=== PATIENT | female | born 1960 | race Caucasian/White ===

== ENCOUNTER 2023-12-07 05:43 | Emergency (ER) | payer OTHER ==
--- OUTSIDE RECORDS SUMMARY | 2023-12-07 05:47 | XMS REPORT | Continuity of Care Document ---
Author Name Unknown Address [address] [facility] [address] [place] [address] [facility] thconnect Address [address] [facility] [address] [facility] [address] [place] [address] Care Team Providers Care Wardrobe Specialty Worker Name Role Phone Yas Atkins MD Primary Care Physici an Diana Turcios MD Attending Clinician [phone] DIANA TURCIOS Attending Clinician Unavailable Sari Sharp MD Attending Clinician [phone] SARI SHARP Attending Clinician Unavailable Doctor Unassigned, [place] Attending Clinician U navailable YAS ATKINS Attending Clinician Lesley vailable Lab, Ang - Db Attending Clinician Unavailable Yas Atkins MD Attending Clinician Kacey Marx Attending Clinician [phone] KACEY RANKIN Attending Clinician Unavaila ble MICHAEL Attending Clinician Unavailable SARI SHARP Admitting Clinician Unavailable Sari Sharp MD Admitting Clinician [phone] MICHAEL Admitting Clinician Unavailable Payers Payer Name Policy Type Policy Number Effective Date Expirati on Date Source [place] [id number] 2019 00:00:00 Problems Condition Name Condition Details Condition Category Status Onset Date Resolution Date Last Treatment Date Treating Clinician Comments Source Encounter for screening colonoscop y Encounter for screening colonoscop y Disease Active 2022-05 00:00: 00 [facility] Non-neopla stic nevus Non-neopla stic Nevus Problem Active 11-19 00:00: 00 [facility] Hyperlipid emia Hyperlipid emia Problem Active 11-18 00:00: 00 [facility] Solar lentigo Solar Lentigo Problem Active 11-18 00:00: 00 [facility] Osteoporos is Osteoporos is Problem Active 11-18 00:00: 00 [facility] Genital herpes simplex type 2 Genital Herpes Simplex Type 2 Problem Active 11-05 00:00: 00 [facility] Herpes labialis Herpes Labialis Problem Active 11-05 00:00: 00 [facility] Middle insomnia Middle Insomnia Problem Active 11-05 00:00: 00 [facility] Heberden node of the distal interphala ngeal joints of the left hand [place] Node of the Distal Interphala ngeal Joints of the Left Hand Problem Active 11-05 00:00: 00 [facility] Phlebitis Phlebitis Problem Active [facility] Osteopenia Osteopenia Problem Active [facility] Scoliosis deformity of spine Scoliosis Deformity of Spine Problem Active [facility] Allergies, Adverse Reactions, Alerts Allergy Name Allergy Type Status Severity Reaction(s) Onset Date Inactive Date Treating Clinician Comments Source NO KNOWN ALLERGIE S Drug Class Active [facility] Social History Social Habit Start Date Stop Date Quantity Comments [facility] intake 2023-12-03 00:00:00 2023-12-03 00:00:00 Current drinker of alcohol (finding) [facility] History of Social function 2023-06-09 00:00:00 2023-06-09 00:00:00 [facility] Alcohol intake 2023-06-03 00:00:00 2023-06-03 00:00:00 Current drinker of alcohol (finding) [facility] Tobacco use and exposure 2023-04-08 00:00:00 2023-04-08 00:00:00 Smokeless tobacco non-user [facility] Alcohol Comment 2023-04-08 00:00:00 2023-04-08 00:00:00 drinks a jaz twice weekly [facility] Sex assigned at 1960 00:00:00 1960 00:00:00 [facility] Smoking Status Start Date Stop Date Source Never smoked tobacco [facility] Medications Ordered Medication Name Filled Medication Name Start Date Stop Date Current Medication? Ordering Clinician Indication Dosage Frequency Signature (SIG) Comments Components Source calcium carb/vitami n D2/vit K1 (CALCIUM- TAMIN D-VITAMIN K ORAL) 12-02 08:28: 38 Yes Take by mouth. [facility] levoFLOXaci n 750 mg tablet 12-02 00:00: 00 Yes [id number] 750mg Take 1 tablet by mouth every 24 (twenty-fo ur) hours. [facility] albuterol 90 mcg/actuati on inhaler 12-02 00:00: 00 Yes [id number] 2{puff} Inhale 2 Puffs every 6 (six) hours as needed for Wheezing or Shortness of Breath. [facility] codeine-gua ifenesin 10-100 mg/5 mL oral solution 12-02 00:00: 00 12-10 04:59 :00 Yes 5mL Take 5 mL by mouth every 6 (six) hours as needed for Cough for up to 7 days. Indication s: Cough [facility] azithromyci n 250 mg tablet 11-30 00:00: 00 12-02 00:00 :00 No 250mg Take 1 tablet by mouth in the morning. [facility] amoxicillin -clavulanat e 875-125 mg per tablet 11-26 00:00: 00 12-02 00:00 :00 No 1{tbl} Take 1 tablet by mouth in the morning and 1 tablet in the evening. [facility] water for irrigation irrigation solution 06-09 16:41: 00 06-09 17:07 :12 No PRN, Starting on Wed06/09/23 at 1041, Until Wed06/09/23 at 1107, Routine, Intra-op [facility] simethicone (GAS RELIEF (SIMETHICON E)) 40 mg/0.6 mL drops 06-09 16:41: 00 06-09 17:07 :12 No PRN, Starting on Wed06/09/23 at 1041, Until Wed06/09/23 at 1107, Routine, Intra-op [facility] lactated ringers IV infusion 1,000 mL 06-09 15:15: 00 06-09 15:27 :00 No 1000mL at 42 mL/hr, 1,000 mL, IV Infusion, ONCE, 1 dose, On Wed06/09/23 at 0915, Routine, DSU Pre-op [facility] calcium carb/vitami n D2/vit K1 (CALCIUM- TAMIN D-VITAMIN K ORAL) 06-09 11:41: 57 Yes Take by mouth. [facility] calcium carb/vitami n D2/vit K1 (CALCIUM- TAMIN D-VITAMIN K ORAL) 2022-05 10:12: 57 Yes Take by mouth. [facility] peg-electro lyte soln 236-22.74-6 .74 -5.86 gram solution 2022-05 00:00: 00 05-07 05:59 :00 No 4000mL Take 4,000 mL by mouth once now for 1 dose. [facility] amoxicillin 500 mg capsule 2022-05 00:00: 00 12-02 00:00 :00 No TAKE 1 CAPSULE BY MOUTH EVERY 8 HOURS UNTIL GONE [facility] calcium carb/vitami n D2/vit K1 (CALCIUM- TAMIN D-VITAMIN K ORAL) 2022-05 10:14: 27 Yes Take by mouth. [facility] alendronate 70 mg tablet Take 1 tablet every week by oral route for 84 days. alendronate 70 mg tablet Take 1 tablet every week by oral route for 84 days. No 1 Q1W alendronat e 70 mg tablet Take 1 tablet every week by oral route for 84 days. [facility] doxepin 3 mg tablet TAKE 1 TABLET BY MOUTH EVERY DAY AT BEDTIME doxepin 3 mg tablet TAKE 1 TABLET BY MOUTH EVERY DAY AT BEDTIME No doxepin 3 mg tablet TAKE 1 TABLET BY MOUTH EVERY DAY AT BEDTIME [facility] valacyclovi r 500 mg tablet TAKE 1 TABLET BY MOUTH EVERY 12 HOURS FOR 3 DAYS NEEDED FOR FLARES valacyclovi r 500 mg tablet TAKE 1 TABLET BY MOUTH EVERY 12 HOURS FOR 3 DAYS NEEDED FOR FLARES No valacyclov ir 500 mg tablet TAKE 1 TABLET BY MOUTH EVERY 12 HOURS FOR 3 DAYS NEEDED FOR FLARES [facility] Vital Signs Vital Name Observation Time Observation Value Comments S diana Systolic blood pressure 2023-12-03 13:30:00 129 mm[Hg] [facility] Diastolic blood pressure 2023-12-03 13:30:00 80 mm[Hg] [facility] Heart rate 2023-12-03 13:29:00 81 /min [facility] Body temperature 2023-12-03 13:29:00 37 Omaira [facility] Respiratory rate 2023-12-03 13:29:00 18 /min [facility] Body height 2023-12-03 13:29:00 162.6 cm [facility] Body weight 2023-12-03 13:29:00 57.607 kg [facility] BMI 2023-12-03 13:29:00 21.80 kg/m2 [facility] Oxygen saturation in Arterial blood by Pulse oximetry 2023-12-03 13:29:00 97 /min [facility] Systolic blood pressure 2023-06-09 17:35:00 118 mm[Hg] [facility] Diastolic blood pressure 2023-06-09 17:35:00 66 mm[Hg] [facility] Heart rate 2023-06-09 17:35:00 52 /min [facility] Respiratory rate 2023-06-09 17:35:00 13 /min [facility] Oxygen saturation in Arterial blood by Pulse oximetry 2023-06-09 17:35:00 100 /min [facility] Body temperature 2023-06-09 17:06:00 36.44 Omaira [facility] Body height 2023-06-03 18:15:00 162.6 cm [facility] Body weight 2023-06-03 18:15:00 58.968 kg [facility] BMI 2023-06-03 18:15:00 22.31 kg/m2 [facility] Systolic blood pressure 2023-06-09 17:35:00 118 mm[Hg] [facility] Diastolic blood pressure 2023-06-09 17:35:00 66 mm[Hg] [facility] Heart rate 2023-06-09 17:35:00 52 /min [facility] Respiratory rate 2023-06-09 17:35:00 13 /min [facility] Oxygen saturation in Arterial blood by Pulse oximetry 2023-06-09 17:35:00 100 /min [facility] Body temperature 2023-06-09 17:06:00 36.44 Omaira [facility] Body height 2023-06-03 18:15:00 162.6 cm [facility] Body weight 2023-06-03 18:15:00 58.968 kg [facility] BMI 2023-06-03 18:15:00 22.31 kg/m2 [facility] Systolic blood pressure 2023-05-06 16:12:00 116 mm[Hg] [facility] Diastolic blood pressure 2023-05-06 16:12:00 72 mm[Hg] [facility] Heart rate 2023-05-06 16:12:00 59 /min [facility] Body temperature 2023-05-06 16:12:00 37 Omaira [facility] Respiratory rate 2023-05-06 16:12:00 18 /min [facility] Body height 2023-05-06 16:12:00 162.6 cm [facility] Body weight 2023-05-06 16:12:00 60.782 kg [facility] BMI 2023-05-06 16:12:00 23.00 kg/m2 [facility] Oxygen saturation in Arterial blood by Pulse oximetry 2023-05-06 16:12:00 100 /min [facility] Systolic blood pressure 2023-04-08 15:50:00 119 mm[Hg] [facility] Diastolic blood pressure 2023-04-08 15:50:00 55 mm[Hg] [facility] Heart rate 2023-04-08 15:50:00 64 /min [facility] Respiratory rate 2023-04-08 15:50:00 18 /min [facility] Body height 2023-04-08 15:50:00 162.6 cm [facility] Body weight 2023-04-08 15:50:00 61.508 kg [facility] BMI 2023-04-08 15:50:00 23.28 kg/m2 [facility] Oxygen saturation in Arterial blood by Pulse oximetry 2023-04-08 15:50:00 99 /min [facility] BP Diastolic 2021-11-18 00:00:00 68 mm[Hg] [facility] Height 2021-11-18 00:00:00 64 [in_i] [facility] BMI (Body Mass Index) 2021-11-18 00:00:00 22.1 kg/m2 [facility] BP Systolic 2021-11-18 00:00:00 108 mm[Hg] [facility] Body Weight 2021-11-18 00:00:00 128.8 [lb_av] [facility] BP Diastolic 2021-11-05 00:00:00 76 mm[Hg] [facility] Height 2021-11-05 00:00:00 64 [in_i] [facility] BMI (Body Mass Index) 2021-11-05 00:00:00 22.3 kg/m2 [facility] BP Systolic 2021-11-05 00:00:00 124 mm[Hg] [facility] Body Weight 2021-11-05 00:00:00 130.2 [lb_av] [facility] Procedures Procedure Date / Time Performed Performing Clinician Source COLONOSCOPY 2023-06-09 16:14:00 Sari Sharp [facility] COLONOSCOPY 2023-06-09 16:14:00 Sari Sharp [facility] COLONOSCOPY (ENDO) 2023-06-09 14:11:23 Yas Carlin [facility] COLONOSCOPY (ENDO) 2023-06-09 14:11:23 Yas Carlin [facility] DAY SURGERY - ADC 2023-06-09 06:01:00 Doctor Lesley guevaragned, [place] [facility] EXTERNAL PROVIDER RECORDS 2023-05-11 06:01:00 Do ctor Unassigned, [place] [facility] ASSIGNMENT OF BENEFITS 2023-05-06 15:54:54 Docto r Unassigned, [place] [facility] OP CORRESPONDENCE 2023-05-05 06:01:00 Doctor Lesley ssigned, [place] [facility] MAMMO, screening, digital, bilateral 2021-11-05 00:00:00 [facility] DEXA, axial skeleton 2021-11-05 00:00:00 [facility] Appendectomy [facility] Plan of Care Planned Activity Planned Date Details Comments Source Diagnostic Test Pending 2021-11-18 00:00:00 pap, IG + HPV mRNA E6/E7 [code = pap, IG + HPV mRNA E6/E7] [facility] Encounters Start Date/Time End Date/Time Encounter Type Admission Type Attending Clinicians Care Facility Care Department Encounter ID Source 2023-12-03 00:00:00 2023-12-03 15:58:04 Telephone Karolina [facility] 1.2.840.114 350.1.13.10 4.2.7.2.686 [id number] [facility] 2023-12-03 08:20:00 2023-12-03 08:51:26 Outpatient R DIANA TURCIOS [facility] [id number] [facility] 2023-12-03 08:20:00 2023-12-03 08:51:26 Office Visit Karolina [facility] 1.2.840.114 350.1.13.10 4.2.7.2.686 [id number] [facility] 2023-06-09 10:54:00 2023-06-09 12:04:00 Surgery Sari Sharp [facility] 1.840.114 350.1.13.10 4.2.7.2.686 [id number] [facility] 2023-06-09 09:11:00 2023-06-09 11:41:00 Outpatient R LILA [facility] [id number] [facility] 2023-06-09 09:11:00 2023-06-09 11:41:00 Hospital Encounter Lila Sari [facility] 1.840.114 350.1.13.10 4.2.7.2.686 [id number] [facility] 2023-06-09 00:00:00 2023-06-09 00:00:00 Orders Only Doctor Unassigned, [place] [facility] 1.2840.114 350.1.13.10 4.2.7.2.686 [id number] [facility] 2023-05-28 10:45:00 2023-05-28 11:13:55 Outpatient R YAS ATKINS [facility] [id number] [facility] 2023-05-28 10:45:00 2023-05-28 11:00:00 Film Processor Visit Lab, Ang - Yas Kaminski [facility] 1.840.114 350.1.13.10 4.2.7.2.686 [id number] [facility] 2023-05-11 00:00:00 2023-05-11 00:00:00 Orders Only Doctor Unassigned, [place] [facility] 1.2840.114 350.1.13.10 4.2.7.2.686 [id number] [facility] 2023-05-07 00:00:00 2023-05-07 00:00:00 Telephone Daniel [facility] 1.2.840.114 350.1.13.10 4.2.7.2.686 [id number] [facility] 2023-05-06 10:00:00 2023-05-06 11:05:49 Outpatient R DANIEL [facility] [id number] [facility] 2023-05-06 10:00:00 2023-05-06 11:05:49 Office Visit Daniel [facility] 1.2.840.114 350.1.13.10 4.2.7.2.686 [id number] [facility] 2023-05-06 00:00:00 2023-05-06 00:00:00 Orders Only Doctor Unassigned, [place] [facility] 1.2.840.114 350.1.13.10 4.2.7.2.686 [id number] [facility] 2023-05-05 00:00:00 2023-05-05 00:00:00 Orders Only Doctor Unassigned, [place] [facility] 1.2.840.114 350.1.13.10 4.2.7.2.686 [id number] [facility] 2023-04-08 11:00:00 2023-04-08 11:00:00 Film Processor Visit Lab, Yas Presley [facility] 1.2.840.114 350.1.13.10 4.2.7.2.686 [id number] [facility] 2023-04-08 10:00:00 2023-04-08 10:42:21 Outpatient R YAS ATKINS [facility] [id number] [facility] 2023-04-08 10:00:00 2023-04-08 10:42:21 [facility] 1.2.840.114 350.1.13.10 4.2.7.2.686 [id number] [facility] 2022-06-09 00:00:00 2022-06-09 00:00:00 Outpatient DEBROECK_J VFP VFP [id number] [facility] 2022-01-19 00:00:00 2022-01-19 00:00:00 Outpatient DEBROECK_J VFP VFP [id number] [facility] 2021-12-15 12:56:00 2021-12-15 12:56:00 Outpatient DEBROECK_J VFP VFP [id number] [facility] 2021-11-18 12:50:00 2021-11-18 12:50:00 Outpatient DEBROECK_J VFP VFP [id number] [facility] 2021-11-18 00:00:00 2021-11-18 00:00:00 Caitlin Johnson, REAL ESTATE OFFICE MANAGER: [address] [place] [address] , Ph. VFP [place] - [facility] - VM_[facility] [id number] [facility] 2021-11-17 02:29:00 2021-11-17 02:29:00 Outpatient DEBROECK_J VFP VFP [id number] [facility] 2021-11-05 03:25:00 2021-11-05 03:25:00 Outpatient DEBROECK_J VFP VFP [id number] [facility] 2021-11-05 00:00:00 2021-11-05 00:00:00 Caitlin Johnson, REAL ESTATE OFFICE MANAGER: [address] [place] [address] , Ph. VFP [place] [facility] [id number] [facility] 2021-11-04 06:09:00 2021-11-04 06:09:00 Outpatient DEBROECK_J [facility] [id number] [facility] 2021-10-29 01:54:00 2021-10-29 01:54:00 Outpatient DEBROECK_J [facility] [id number] [facility] e Results Test Description Test Time Test Comments Results Result Co mments Source [facility] [id number] [facility]:00:00* Test Item Value Reference Range Interpretation Comme nts rheumatoid factor (test code = rheumatoid factor) <14 <14 cyclic citrullinated peptide (ccp) Ab (IgG) (test code = cyclic citrullinated peptide (ccp) Ab (IgG)) <16 interpretation (test code = interpretation) [facility] sediment[facility] rate by Westergren method 2021-11-07 00:00:00* Test Item Value Reference Range Interpretation Comme nts sed rate by modified westergren (test code = sed rate by modified westergren) 2 mm/h See_Comment [Automated messa ge] The system which generated this result transmitted reference range: < or = 30. The reference range was not used to interpret this result as normal/abnormal. [facility] nuclear IgG Ab [Units/volume] in Serum by [id number] 00:00:00* Test Item Value Reference Range Interpretation Comme nts ELEAZAR screen, ifa (test code = ELEAZAR screen, ifa) negative negative [facility].intact [Mass/volume] in Serum or Plasma 2021-11-07 00:00:00* Test Item Value Reference Range Interpretation Comme nts parathyroid hormone, intact (test code = parathyroid hormone, intact) 35 pg/mL 16-77 [facility] Auto Differential panel - [id number] 00:00:00 * Test Item Value Reference Range Interpretation Comme nts WBC (test code = WBC) 6.46 x10*3/?L 4.00-11.00 RBC (test code = RBC) 4.07 10*12/L 3.93-5.22 hemoglobin (test code = hemoglobin) 12.60 g/dL 11.20-15.70 hematocrit (test code = hematocrit) 39.2 % 34.1-44.9 MCV (test code = MCV) 96.3 fL 80.0-100.0 MCH (test code = MCH) 31.0 pg 25.6-32.2 MCHC (test code = MCHC) 32.1 g/dL 32.2-35.5 L RDW-SD (test code = RDW-SD) 46.3 fL 36.4-46.3 platelet count (test code = platelet count) 278.0 k/uL 150.0-400.0 MPV (test code = MPV) 11.5 fL 7.5-11.5 neut% (test code = neut%) 62.0 % 34.0-71.1 lymph% (test code = lymph%) 28.9 % 19.3-51.7 mon% (test code = mon%) 6.0 % 4.7-12.5 eos% (test code = eos%) 2.0 % 0.7-5.8 baso% (test code = baso%) 0.8 % 0.1-1.2 neut# (test code = neut#) 4.0 x10*3/?L 1.6-6.1 lymph# (test code = lymph#) 1.9 x10*3/?L 1.2-3.7 mon# (test code = mon#) 0.4 x10*3/?L 0.2-0.9 eos# (test code = eos#) 0.13 x10*3/?L 0.04-0.36 baso# (test code = baso#) 0.05 x10*3/?L 0.01-0.08 [facility] 2000 [facility] - Serum or Plasma 2021-11-06 00:00:00* Test Item Value Reference Range Interpretation Comme nts ALT (test code = ALT) 15 U/L 0-55 AST (test code = AST) 20 U/L 5-34 BUN (test code = BUN) 11.0 mg/dL 9.8-25.0 alk phos (test code = alk phos) 112 unit/L 40-150 glucose (test code = glucose) 85 mg/dL 70-99 albumin (test code = albumin) 4.4 g/dL 3.4-5.1 creatinine (test code = creatinine) 0.80 mg/dL 0.57-1.11 eGFR non- (t est code = eGFR non-) >60 total bilirubin (test code = total bilirubin) 0.4 mg/dL 0.2-1.2 eGFR - (bartolo t code = eGFR - ) >60 sodium (test code = sodium) 140 mEq/L 135-145 potassium (test code = potassium) 4.4 mEq/L 3.5-5.3 chloride (test code = chloride) 105 mmol/L 98-110 total protein (test code = t otal protein) 7.2 g/dL 6.1-8.2 calcium (test code = calcium) 9.6 mg/dL 8.4-10.4 CO2 (test code = CO2) 27.8 mmol/L 20.0-32.0 anion gap (test code = anion gap) 7 calc [facility] 1996 panel - Serum or [id number] 00:00:00* Test Item Value Reference Range Interpretation Comme nts HDL (test code = HDL) 96 mg/dL triglyceride (test code = triglyceride) 42 mg/dL <150 VLDL (calculated) (test code = VLDL (calculated)) 8 mg/dL cholesterol/HDL ratio (test code = cholesterol/HDL ratio) 2.2 mg/dL non-HDL cholesterol (calcula elicia) (test code = non-HDL cholesterol (calculated)) 114 mg/dL <160 cholesterol (test code = cholesterol) 210 mg/dL <200 H Cholesterol in LDL [Mass/vol ume] in Serum or Plasma (test code = 2089-1) 106 mg/dL <130 [facility] HospitalThyrotropin [Units/volume] in Serum or [id number] 00:00:00* Test Item Value Reference Range Interpretation Comme [facility] TSH (test code = TSH) 0.908 uIU/mL 0.350-4.940 [facility] HospitalUfjaeiyf60-Tjhrmssjhpzqmx D3+25-Hydroxyvitamin D2 [Mass/volume] in Serum or [id number] 00:00:00* Test Item Value Reference Range Interpretation Comme nts vitamin D 25OH (test code = vitamin D 25OH) 44.4 NG/mL 30.0-96.0 [facility] HospitalUrinalysis macro (dipstick) panel - [id number] 15:06:00* Test Item Value Reference Range Interpretation Comme nts Color Color (test code = Col or Color) light yellow Color Appearance (test code = Color Appearance) clear Color Glucose (test code = C olor Glucose) negative Color Bilirubin (test code = Color Bilirubin) negative Color Ketones (test code = C olor Ketones) negative Color Specific [place] (test code = Color Specific [place]) 1.005 Color Blood (test code = Col or Blood) negative Color PH (test code = Color PH) 6.5 Color Protein (test code = C olor Protein) negative Color Urobilinogen (test cod e = Color Urobilinogen) 0.2 Color Nitrites (test code = Color Nitrites) negative Color Leukocytes (test code = Color Leukocytes) negative [facility]inalysis macro (dipstick) panel - [id number] 15:06:00* Test Item Value Reference Range Interpretation Comme nts Color Color (test code = Col or Color) light yellow Color Appearance (test code = Color Appearance) clear Color Glucose (test code = C olor Glucose) negative Color Bilirubin (test code = Color Bilirubin) negative Color Ketones (test code = C olor Ketones) negative Color Specific [place] (test code = Color Specific [place]) 1.005 Color Blood (test code = Col or Blood) negative Color PH (test code = Color PH) 6.5 Color Protein (test code = C olor Protein) negative Color Urobilinogen (test cod e = Color Urobilinogen) 0.2 Color Nitrites (test code = Color Nitrites) negative Color Leukocytes (test code = Color Leukocytes) negative [facility] History and Physical Notes Date/Time Note Provider Source 2023-06-09 09:54:22 0322-19-77F61:54:22F ormatting of this note is different from the original.COLORECTAL SURGERY NOTEReason for Visit / Chief Complaint: History of polypsHistory of Present Illness:06/09/23:No complaints today, here for wcaqkxgnfvb79/7/2023:Garry Fernandez is a 63 year old female with PMHx as mentioned below who presents for a colonoscopy screening. Daily soft formed daily bowel movements with intermittent constipation. Denies any changes in bowel habits, mucus, hematochezia , nausea, vomiting, abdominal pain , early satiety, fecal incontinence or weight loss. Denies Family history of cancer. 3 polyps were found. And an internal hemorrhoid. Previous colonoscopy performed by Dr. Carol Loco at [facility] 08/2016. Denies a being established with Cardiology. Denies any sob or chest pain.Previous abdominal surgeriesAppendectomyPast Medical History:Past Medical History:Diagnosis DateOsteoporosisPast Surgical History:Past Surgical History:Procedure Laterality DateAPPENDECTOMYCOLONOSCOPYREMOVAL OF ANAL FISSUREAllergies:No Known AllergiesMedications:No current facility-administered medications for this encounter.Family History:Family HistoryProblem Relation Age of OnsetNo Significant Medical Problems MotherSocial History:Social HistorySocioeconomic HistoryMarital status: MarriedTobacco UseSmoking status: NeverSmokeless tobacco: NeverVaping UseVaping Use: Never usedSubstance and Sexual ActivityAlcohol use: YesComment: drinks a jaz twice weeklyDrug use: NeverReview of Systems:All systemPhysical Exam:BP 112/62 | Pulse 67 | Temp 36.4 ?C (97.5 ?F) (Temporal Artery) | Resp 19 | Ht 1.626 m (5' 4") | Wt 59 kg (130 lb) | SpO2 98% | BMI 22.31 kg/m?Assessment/Diagnosis:Garry Fernandez is a 63 year old female with PMHx as mentioned below who presents for a colonoscopy surveillancePlan:1. Surveillance colonoscopy today in patient of above avg risk CRC due to personal h/o polyps. All risks benefits and alternatives discussed with patient, including the risk of bleeding, infection, damage to surrounding tissues and need for more invasive measures to address these complications, and she is amenable to proceed with procedure.Sari Sharp MD 06/09/2023 9:55 AMColon and Rectal Surgery 71807-0Jjwyogk and physical owxaWD2336-19-93X29:19:33History and physical noteTXT1.2.840.888864.1.13.104.2.7.2.19735 9|[id number] for patient hrvj59418-7Xjenelk and physical noteLNNARRATIVEFormatted C-CDA narrative text70 [address] StreetTXTX[address]5577555USNAVEED BATEMANNQJVZXWYHUCJRXUX6291-61-90K71:19:331.2.840 .774874.1.72.3.15|1.2.840.960300.1.13.104. [id number] [facility] Notes Date/Time Note Provider Source 2023-12-03 15:57:36 3722-92-21G10:57:36F ormatting of this note might be different from the original.Contacted patient to inform her 96868-4Miqmihqnw encounter TbrnVN1411-44-26A80:58:04Telephon e encounter NoteTXT1.2.840.316561.1.13.104.2. 7.2.533377|[id number] for patient gdno78187-2KftpLEKVMVIMMGEKtkewzx ed C-CDA narrative text70 [address] StreetTXTX[address]77 258TSBBDMUROCXDBJUHLVTSZR6268-69- 05T15:58:041.2.840.259889.1.72.3. 15|1.2.840.088285.1.13.104.2.7.2. [id number] [facility] 2023-12-03 13:17:22 8126-18-58G90:17:22F ormatting of this note might be different from the original.Sure, I sent it. 18655-7Laxipuilv encounter TwskZE1729-85-91F26:17:35Telephon e encounter NoteTXT1.2.840.561758.1.13.104.2. 7.2.854247|[id number] for patient fvkj25462-4MoisDNTNTXPEQAQZebvgnn ed C-CDA narrative text[address]TXTX[address]77 565XXMCDOUOBFVMVOQTOHIIDW6893-78- 05T13:17:351.2.840.108906.1.72.3. 15|1.2.840.138209.1.13.104.2.7.2. [id number] [facility] 2023-12-03 10:00:04 2320-56-66U23:00:04F ormatting of this note might be different from the original.Please review and advise 89479-7Tlahzhnmm encounter SplgXA8269-95-42F89:00:23Telephon e encounter NoteTXT1.2.840.315501.1.13.104.2. 7.2.106442|[id number] for patient hosu25140-4StkmHFXSEMYIWNWGqjwhot ed C-CDA narrative [address]TXTX[address] 466VVQMRRTTIAUKKYFXCNHNJL3340-57- 05T10:00:231.2.840.109795.1.72.3. 15|1.2.840.104451.1.13.104.2.7.2. [id number] [facility] 2023-12-03 09:16:19 7914-89-86Y21:16:19F ormatting of this note might be different from the original.Garry Fernandez is a 63 year old femalePatient called asking if she can receive an inhaler for her pneumonia she was seen for today. Please contact [phone] (home)[facility] [id number] [place] [address] [facility] CordellWizeHiveM[facility] [65] [address]39[address]-3Fetpevciu encounter ObncKY1005-55-88H85:18:47Telephon e encounter NoteTXT1.2.840.348720.1.13.104.2. 7.2.125993|[id number] for patient hxzs22874-4VrruUYTSWGCNIFKYxmvmre ed C-CDA narrative [id number] Silvana[address]TXTX[address] 189JKBMOSTJJRADMBWKTZGUUN0546-07- 05T09:18:471.2.840.715160.1.72.3. 15|1.2.840.288498.1.13.104.2.7.2. [id number] Randall Pina [facility] 2023-06-09 10:42:48 6006-21-68T54:42:48F ormatting of this note might be different from the original.CALLED PREOP, SPOKE WITH SHERRI TO UPDATE PT'S SPOUSE, ALLEN, THAT WE GOT STARTED, PER PT REQUEST. - GERARDO WISE. 85160-2Pwoei GbhrWZ3696-70-71K03:43:16Nurse NoteTXT1.2.840.742999.1.13.104.2. 7.2.151148|[id number] for patient xknj70336-5SryyPYJJEEJKCVBHmptgcf ed C-CDA narrative [id number] C Damian RN[address]TXTX[address] 246ZPQATRGZWHYTTFJCTFSFVG5815-26- 10T10:43:161.2.840.563260.1.72.3. 15|1.2.840.068144.1.13.104.2.7.2. [id number] Michael Tate RN [facility] 2023-06-03 12:04:19 0705-89-02B30:04:19F ormatting of this note might be different from the original.Images from the original note were not included.Your upcoming procedure is at [facility] on 06/09/22. The address is [address] [place] [address], [id number].The nursing staff at [facility] will call you the workday before your procedure to let you know what time to arrive. When you arrive, please go inside and sign in at the desk.Please note: You may not travel home alone after your procedure and that includes in a taxi or by bus. We must speak to your Responsible Adult (who will be picking you up) the morning of your procedure, before the start of your procedure. This person must be an adult over the age of 18 years of age.Maintain a clear liquid diet the entire day before your procedure. Do not drink anything containing red, blue, or purple dyes. Follow the instructions of your bowel prep as directed by you physician. You may also take your medications the morning of your procedure with a sip of water as directed by physician.Anticoagulants will be per physician Guidance. Medication Note(s)/Instructions:Pt educated on the bowel prep and medication. Understanding was verbalized, with no questions or concerns at this time. Teach-back method repeated and confirmed. There are no pre-op orders for labs or further testing at this time. No questions or concerns on bowel prep at this time. Email also sent to patient.Both patient and person accompanying and/or picking patient up must be able to wear a mask and be without symptoms of COVID 19.Pending screening, a COVID test may be required. If a patient tests positive, their cases are cancelled and/or rescheduled. COVID NOTE: Denies COVID symptoms or exposure, no testing required.Additional questions, concerns, requests:Patient verbalized understanding of pre-op instructions and voiced no further questions at this time. 05039-2Igndu DumeTU0654-23-39S96:20:00Nurse NoteTXT1.2.840.440436.1.13.104.2. 7.2.596734|[id number] for patient zcya21044-2YfwzBIYCQERVZHQIvokbyj ed C-CDA narrative text[address]TXTX[address] 217XTDUJKUDVQNEWGPOYJOTSJ3312-06- 04T12:20:001.2.840.054059.1.72.3. 15|1.2.840.038943.1.13.104.2.7.2. [id number] [facility] 2023-05-28 10:45:00 4684-36-38P24:45:00F ormatting of this note is different from the original.Images from the original note were not included.Venipuncture collection performed by clean technique on the right anticubitus. Total of 1 attempts were made. Slight pressure and a bandage/dressing were applied to the site(s). The patient experienced no complications. The following specimens were processed according to instructions and sent to [facility] laboratories per lab order on 05/28/2023:LT BLUESST 1REDLAV 1PPTDK GREEN (LiHep)DK GREEN (SodH)GRAYDK BLUE (K2)DK BLUE (S)ACDBlood CultureNIPT/NTD 71927-8Juucx IvinMQ1835-01-18O97:57:31Nurse NoteTXT1.2.840.654700.1.13.104.2. 7.2.969901|[id number] for patient btzu01949-5Lddbq NoteLNNARRATIVEFormatted C-CDA narrative text[address]TXTX[address] 745HGUQDRWWHMPFBSQPKITOWL0382-25- 29T10:57:311.2.840.027319.1.72.3. 15|1.2.840.174668.1.13.104.2.7.2. [id number] [facility]
--- NOTE | 2023-12-07 07:15 | RAD REPORT ---
EXAM DESCRIPTION: CT - Thorax Wo Con - 12/07/2023 6:59 am CLINICAL HISTORY: sob COMPARISON: none TECHNIQUE: Computed axial tomography of the chest was obtained. Contrast was not requested. All CT scans are performed using dose optimization technique as appropriate and may include automated exposure control or mA/KV adjustment according to patient size. FINDINGS: The evaluation of mediastinum, ariane and vessels is limited secondary to lack of IV contras t administration. Mild opacities within the lower lobes bilaterally. Upper lobes clear No mediastinal or hilar lymphadenopathy is seen. A pleural effusion is not present. No pericardial IMPRESSION: Mild bilateral lower lobe opacities may represent atelectasis or pneumonia
[2023-12-07 07:39] LABS: Hematocrit 40.1 % (36.0-45.0); Hemoglobin 13.2 g/dL (12.0-15.0); MCH 30.3 pg (27.0-35.0); MCV 91.9 fL (80-100); Platelets 433 thou/uL (152-406); RBC Red Blood Cell Count 4.36 M/uL (3.86-4.86)
[2023-12-07 07:40] LABS: Absolute Eosinophils 0.1 K/uL (0-0.5); Absolute Lymphocytes (CBC) 1.6 K/uL (0.7-4.9); Absolute Monocytes 0.4 K/uL (0.1-1.3); Absolute Neutrophil 3.3 K/uL (1.8-8.0); Basophils % 0.4 % (0-1.3); Eosinophils % 1.4 % (0-4.4); Lymphocytes % 29.8 % (15.3-44.8); MPV 7.9 fL (7.6-11.3); Monocytes % 7.8 % (3.3-12.3); Neutrophils % 60.6 % (41.7-73.7); Red Cell Distribution Width 13.7 % (12.1-15.2)
[2023-12-07 07:46] LABS: ALT/SGPT 16 U/L (13-56); AST/SGOT 14 U/L (15-37); Albumin 3.5 g/dL (3.4-5.0); Albumin/Globulin Ratio 0.8 (1.1-1.8); Alkaline Phosphatase 113 U/L (45-117); Anion Gap 5.8 mEq/L (5.0-15.0); BUN Blood Urea Nitrogen 9 mg/dL (7-18); Bicarbonate 30 mEq/L (21-32); Bilirubin Total 0.3 mg/dL (0.2-1.0); Globulin 4.2 g/dL (2.3-3.5); Glomerular Filtration Rate 75 ml/min (=/>90); Glucose Level 110 mg/dL (74-106); Magnesium 2.3 mg/dL (1.6-2.4); NT PRO-BNP 27 pg/mL (<125); Potassium 3.8 mEq/L (3.5-5.1); Protein, Total 7.7 g/dL (6.4-8.2); Sodium Level 137 mEq/L (136-145)
[2023-12-07 07:55] LABS: Bilirubin Direct < 0.2 mg/dL (0-0.2); Bilirubin Indirect, Calculated 0.1 mg/dL (0.2-0.8)
--- NOTE | 2023-12-07 08:57 | EDPHYS ---
Physician Documentation [facility] Name: Garry Reyes Age: 63 yrs Sex: Female : 1960 Arrival Date: 12/07/2023 Time: 05:43 Bed 18 Private MD: ED Physician Yakov Naranjo HPI: 12/06 06:16 This 63 yrs old Female presents to ER via Ambulatory with complaints of Breathing sp3 Difficulty, Cough. 06:16 63-year-old female with no past medical history and recent diagnosis of pneumonia at [facility] and was placed on amoxicillin and Zithromax who then later followed up with the PCP who switched her to Levaquin presents to the ED with chief complaint continued generalized malaise, cough, chills and "not getting better". She denies any new symptoms including objective fever, chest pain, back pain, abdominal pain, vomiting, diarrhea, or any other signs or symptoms on ROS at this time.. Historical: - Allergies: 05:57 No Known Allergies; jb4 - PMHx: 05:57 None; jb4 - PSHx: 05:57 Appendectomy; jb4 - Immunization history:: Adult Immunizations up to date. - Infectious Disease History:: Denies. - Social history:: Smoking status: Patient denies any tobacco usage or history of. ROS: 06:17 Constitutional: Negative for fever, chills, and weight loss, Eyes: Negative for injury, sp3 pain, redness, and discharge, Neck: Negative for injury, pain, and swelling, Cardiovascular: Negative for chest pain, palpitations, and edema, Abdomen/GI: Negative for abdominal pain, nausea, vomiting, diarrhea, and constipation, Back: Negative for injury and pain, MS/Extremity: Negative for injury and deformity, Skin: Negative for injury, rash, and discoloration, Neuro: Negative for headache, weakness, numbness, tingling, and seizure, Psych: Negative for depression, anxiety, suicide ideation, homicidal ideation, and hallucinations, Allergy/Immunology: Negative for hives, rash, and allergies, Endocrine: Negative for neck swelling, polydipsia, polyuria, polyphagia, and marked weight changes, Hematologic/Lymphatic: Negative for swollen nodes, abnormal bleeding, and unusual bruising, 06:17 All other systems are negative, Exam: 06:17 Constitutional: This is a well developed, well nourished patient who is awake, alert, sp3 and in no acute distress. Head/Face: Normocephalic, atraumatic. Eyes: Pupils equal round and reactive to light, extra-ocular motions intact. Lids and lashes normal. Conjunctiva and sclera are non-icteric and not injected. Cornea within normal limits. Periorbital areas with no swelling, redness, or edema. ENT: Nares patent. No nasal discharge, no septal abnormalities noted. External auditory canals are clear. Oropharynx with no redness, swelling, or masses, exudates, or evidence of obstruction, uvula midline. Mucous membranes moist. Neck: Trachea midline, no thyromegaly or masses palpated, and no cervical lymphadenopathy. Supple, full range of motion without nuchal rigidity, or vertebral point tenderness. No Meningismus. Chest/axilla: Normal chest wall appearance and motion. Nontender with no deformity. No lesions are appreciated. Cardiovascular: Regular rate and rhythm with a normal S1 and S2. No gallops, murmurs, or rubs. Normal PMI, no JVD. No pulse deficits. Respiratory: Lungs have equal breath sounds bilaterally, clear to auscultation and percussion. No rales, rhonchi or wheezes noted. No increased work of breathing, no retractions or nasal flaring. Abdomen/GI: Soft, non-tender, with normal bowel sounds. No distension or tympany. No guarding or rebound. No evidence of tenderness throughout. Back: No spinal tenderness. No costovertebral tenderness. Full range of motion. Skin: Warm, dry with normal turgor. Normal color with no rashes, no lesions, and no evidence of cellulitis. MS/ Extremity: Pulses equal, no cyanosis. Neurovascular intact. Full, normal range of motion. Neuro: Awake and alert, GCS 15, oriented to person, place, time, and situation. Cranial nerves II-XII grossly intact. Motor strength 5/5 in all extremities. Sensory grossly intact. Cerebellar exam normal. Normal gait. Psych: Awake, alert, with orientation to person, place and time. Behavior, mood, and affect are within normal limits. 06:17 ECG was reviewed by the Attending Physician. EKG demonstrates normal sinus rhythm at 89 bpm with normal intervals, normal QRS, normal axis, nonspecific diffuse ST/T changes without evidence of acute ischemia. Vital Signs: 05:55 BP 129 / 61; Pulse 88; Resp 16; Temp 97.8(TE); Pulse Ox 98% on R/A; Weight 61.23 kg; jb4 Height 5 ft. 4 in. (R); Pain 0/10; 06:38 BP 127 / 78; Pulse 85; Resp 17; Temp 97.9(TE); Pulse Ox 97% on R/A; vk 07:19 BP 133 / 94; Pulse 100; Resp 20 S; Pulse Ox 100% on R/A; kc6 09:05 BP 129 / 81; Pulse 84; Resp 19 S; Pulse Ox 100% on R/A; kc6 05:55 Body Mass Index 23.17 (61.23 kg, 162.56 cm) jb4 05:55 Pain Scale: Adult jb4 MDM: 06:06 Patient medically screened. sp3 08:55 Differential diagnosis: pneumonia, Pneumothorax. Data reviewed: vital signs, nurses rn notes, lab test result(s), radiologic studies, CT scan, and as a result, I will discharge patient. Counseling: I had a detailed discussion with the patient and/or guardian regarding the historical points, exam findings, and any diagnostic results supporting the discharge/admit diagnosis, lab results, radiology results, the need for outpatient follow up, to return to the emergency department if symptoms worsen or persist or if there are any questions or concerns that arise at home. Special discussion: I discussed with the patient/guardian in detail that at this point there is no indication for admission to the hospital. It is understood, however, that if the symptoms persist or worsen the patient needs to return immediately for re-evaluation. Based on the history and exam findings, there is no indication for further emergent testing or inpatient evaluation. I discussed with the patient/guardian the need to see the primary care provider for further evaluation of the symptoms. ED course: No oxygen requirement, ct chest shows mild bibasilar pneumonia. Harry xtend her levaquin for 5 more days and dc home. . 12/06 06:07 Order name: Basic Metabolic Panel; Complete Time: 07:56 sp3 12/06 06:07 Order name: CBC with Diff; Complete Time: 07:56 sp3 12/06 06:07 Order name: LFT's; Complete Time: 07:56 sp3 12/06 06:07 Order name: Magnesium; Complete Time: 07:56 sp3 12/06 06:07 Order name: NT PRO-BNP; Complete Time: 07:56 sp3 12/06 06:07 Order name: Troponin HS; Complete Time: 07:56 sp3 12/06 06:07 Order name: Blood Culture Adult (2) sp3 12/06 06:07 Order name: CT Chest Wo Con; Complete Time: 07:28 sp3 12/06 06:07 Order name: EKG; Complete Time: 06:07 sp3 12/06 06:07 Order name: Cardiac monitoring; Complete Time: 06:33 sp3 12/06 06:07 Order name: EKG - Nurse/Tech; Complete Time: 06:18 sp3 12/06 06:07 Order name: IV Saline Lock; Complete Time: 06:33 sp3 12/06 06:07 Order name: Labs collected and sent; Complete Time: 06:40 sp3 12/06 06:07 Order name: O2 Per Protocol; Complete Time: 06:18 sp3 12/06 06:07 Order name: O2 Sat Monitoring; Complete Time: 06:18 sp3 Administered Medications: No medications were administered Disposition Summary: 12/07/23 08:57 Discharge Ordered Notes: Location: Home rn Problem: an ongoing problem rn Symptoms: are unchanged rn Condition: Stable rn Diagnosis - Pneumonia, unspecified organism rn Followup: rn - With: Private Physician - When: As needed - Reason: Recheck today's complaints, Re-evaluation by your physician Discharge Instructions: - Discharge Summary Sheet rn - Community-Acquired Pneumonia, Adult rn Forms: - Medication Reconciliation Form rn - Antibiotic paramedic rn - Prescription Opioid Use rn - Patient Portal Instructions rn - Leadership Thank You Letter rn Prescriptions: - levofloxacin 750 mg Oral tablet - take 1 tablet ORAL route once daily for 5 days; 5 tablet; Refills: 0, Product rn Selection Permitted Signatures: Dispatcher [employer] Yakov Mccoy MD MD rn Bryson, James, RN RN jb4 Del Wilde MD MD sp3 Corrections: (The following items were deleted from the chart) 05:58 05:57 PSHx: None; bijan thakkar
--- NOTE | 2023-12-07 08:57 | ER ---
Nurse's Notes [facility] Name: Garry Reyes Age: 63 yrs Sex: Female : 1960 Arrival Date: 12/07/2023 Time: 05:43 Bed 18 Private MD: Diagnosis: Pneumonia, unspecified organism Presentation: 12/06 05:55 Chief complaint: Patient states: I was diagnosed with pneumonia a week ago. Now when i jb4 cough it feels like I cannot breathe. Coronavirus screen: At this time, the client does not indicate any symptoms associated with coronavirus-19. Ebola Screen: No symptoms or risks identified at this time. Initial Sepsis Screen: Does the patient meet any 2 criteria? No. Patient's initial sepsis screen is negative. Does the patient have a suspected source of infection? No. Patient's initial sepsis screen is negative. Risk Assessment: Do you want to hurt yourself or someone else? Patient reports no desire to harm self or others. Onset of symptoms was December 07, 2023. Transition of care: patient was not received from another setting of care. 05:55 Method Of Arrival: Ambulatory jb4 05:55 Acuity: LAURA 3 jb4 Historical: - Allergies: 05:57 No Known Allergies; jb4 - PMHx: 05:57 None; jb4 - PSHx: 05:57 Appendectomy; jb4 - Immunization history:: Adult Immunizations up to date. - Infectious Disease History:: Denies. - Social history:: Smoking status: Patient denies any tobacco usage or history of. Screenin:15 [facility] ED Fall Risk Assessment (Adult) History of falling in the last 3 months, rg5 including since admission No falls in past 3 months (0 pts) Confusion or Disorientation No (0 pts) Intoxicated or Sedated No (0 pts) Impaired Gait No (0 pts) Mobility Assist Device Used No (0 pt) Altered Elimination No (0 pt) Score/Fall Risk Level 0 - 2 = Low Risk. Abuse screen: Denies threats or abuse. Nutritional screening: No deficits noted. Tuberculosis screening: No symptoms or risk factors identified. Assessment: 06:15 General: Appears in no apparent distress. comfortable, Behavior is calm, cooperative, rg5 appropriate for age. 06:15 Pain: Denies pain. Neuro: Level of Consciousness is awake, alert, obeys commands, rg5 Oriented to person, place, time. Cardiovascular: Denies chest pain, Capillary refill < 3 seconds. Respiratory: Reports shortness of breath at rest cough that is dry, Airway is patent Trachea midline Respiratory effort is even, unlabored, relaxed. GI: Abdomen is round. : No signs and/or symptoms were reported regarding the genitourinary system. EENT: No deficits noted. Derm: Skin is intact, Skin is dry, Skin is pink, warm \T\ dry. Skin temperature is warm. Musculoskeletal: Range of motion: intact in all extremities. 07:00 Reassessment: Patient appears in no apparent distress at this time. No changes from kc6 previously documented assessment. Patient and/or family updated on plan of care and expected duration. Pain level reassessed. Patient is alert, oriented x 3, equal unlabored respirations, skin warm/dry/pink. 08:22 Reassessment: Patient appears in no apparent distress at this time. No changes from kc6 previously documented assessment. Patient and/or family updated on plan of care and expected duration. Pain level reassessed. Patient is alert, oriented x 3, equal unlabored respirations, skin warm/dry/pink. Vital Signs: 05:55 BP 129 / 61; Pulse 88; Resp 16; Temp 97.8(TE); Pulse Ox 98% on R/A; Weight 61.23 kg; jb4 Height 5 ft. 4 in. (R); Pain 0/10; 06:38 BP 127 / 78; Pulse 85; Resp 17; Temp 97.9(TE); Pulse Ox 97% on R/A; vk 07:19 BP 133 / 94; Pulse 100; Resp 20 S; Pulse Ox 100% on R/A; kc6 09:05 BP 129 / 81; Pulse 84; Resp 19 S; Pulse Ox 100% on R/A; kc6 05:55 Body Mass Index 23.17 (61.23 kg, 162.56 cm) jb4 05:55 Pain Scale: Adult jb4 ED Course: 05:49 Patient arrived in ED. gm2 05:57 Triage completed. jb4 05:57 Arm band placed on right wrist. jb4 06:02 Del Wilde MD is Attending Physician. sp3 06:09 Bijan Fields, GERARDO is Primary Nurse. rg5 06:15 Bed in low position. Call light in reach. Side rails up X 1. rg5 06:15 No provider procedures requiring assistance completed. rg5 06:18 EKG done, by ED staff. vk 06:35 Initial lab(s) drawn, by me, sent to lab. First set of blood cultures drawn by me. vk 06:38 Inserted saline lock: 20 gauge in right antecubital area, using aseptic technique. vk Blood collected. 06:40 Basic Metabolic Panel Sent. vk 06:40 CBC with Diff Sent. vk 06:40 LFT's Sent. vk 06:40 Magnesium Sent. vk 06:40 NT PRO-BNP Sent. vk 06:40 Troponin HS Sent. vk 07:00 CT Chest Wo Con In Process Unspecified. EDMS 07:00 Report received from Bijan Fields RN. kc6 07:00 desk monitor on. Pulse ox on. NIBP on. Door closed. Noise minimized. Lights dimmed. kc6 Warm blanket given. Pillow given. 07:04 Attending Physician role handed off by Del Wilde MD rn 07:04 Yakov Naranjo MD is Attending Physician. rn 09:07 IV discontinued, intact, bleeding controlled, No redness/swelling at site. Pressure kc6 dressing applied. Administered Medications: No medications were administered Medication: 06:15 VIS not applicable for this client. rg5 Outcome: 08:57 Discharge ordered by . rn 09:06 Discharged to home ambulatory, with significant other, kc6 09:06 Condition: good 09:06 Discharge instructions given to patient, significant other, Instructed on discharge instructions, follow up and referral plans. medication usage, Demonstrated understanding of instructions, follow-up care, medications, Prescriptions given X 1, 09:07 Patient left the ED. kc6 Signatures: Dispatcher [employer] EDMS Yakov Naranjo MD MD rn Bryson, James, RN RN jb4 Del Wilde MD MD sp3 Kristine Meadows RN RN alana6 Shanna Erickson Vivian vk Gallardo, Rommel, RN RN rg5 Corrections: (The following items were deleted from the chart) 05:58 05:57 PSHx: None; jb4 jb4
[2023-12-07 09:19] VITALS: BP 129/81; TEMP 97.9; O2SAT 100
--- NOTE | 2023-12-08 12:12 | EKG ---
Test Date: 2023-12-07 Test Time: 06:14:02 Dispatcher [employer]: MARY MEASUREMENT RESULTS: Intervals: Rate: 89 DE: 136 QRSD: 76 QT: 358 QTc: 435 Homer: P: 54 DE: 136 QRS: 7 T: 42 INTERPRETIVE STATEMENTS: Normal sinus rhythm Septal infarct, age undetermined Abnormal ECG No previous ECG available for comparison Electronically Signed On 12-08-23 12:10:41 CDT by Shai Orosco
== END 2023-12-07 09:07 | disposition home or self-care (01) ==
LOC: ER 05:43 → EDBD 05:43 → ER 09:07
DX: J18.9 Pneumonia, unspecified organism (principal)
CPT/HCPCS: 36415; 71250; 80048; 80076; 83735; 83880; 84484; 85025; 87040; 93005; 99284